=== PATIENT | male | born 1960 | race Caucasian/White ===

== ENCOUNTER 2019-12-14 01:29 | Outpatient (CLI) | payer OTHER, SELFPAY ==
[2019-12-14 19:02] LABS: SARS-CoV-2 RNA PCR Negative
== END 2019-12-14 01:30 | disposition home or self-care (01) ==
LOC: ANHCOVIDDT 01:30
PROVIDERS: PCP Internal Medicine; Visit Provider Internal Medicine Gastroenterology
DX: Z01.812 Encounter for preprocedural laboratory examination (principal); Z20.828 Contact with and (suspected) exposure to other viral communicable diseases
CPT/HCPCS: 87635; C9803; U0003

== ENCOUNTER 2019-12-16 00:59 | Day surgery (SDC) | payer OTHER, SELFPAY ==
[2019-12-09 14:40] VITALS: BMI 28.3
[2019-12-16 07:06] VITALS: BP 176/92; PULSE 60; RESP 16; TEMP 36.3; O2SAT 98; BMI 27.3
--- NOTE | 2019-12-16 07:09 | P.HP_ITS ---
History of Present Illness History of Present Illness Consent: Risks, benefits, and alternatives have been discussed and questions answered. Patient agrees to proceed with procedure. Chief complaint: neoplasm screening Narrative: Mauro Mercado is a 59 year old W male referred for screening colonoscopy. Patient's last colonoscopy was over 10 years ago. Patient is asymptomatic and there is no known family history of colon polyps or colon cancer. [facility] Social History Social History Smoking packs per day: 0.5 Smoking cigarettes per day: 10.0 Years smoked: 20 Smoking pack-years: 10.00 Smoking status: Former smoker Tobacco type: cigarettes Alcohol intake: never Substance use: never Substance use type: does not use Living arrangements: alone Gender identity (if verbalized by the patient): Male Spiritual care concerns: No Meds Home Medications and Allergies Home Medications Medication Instructions Recorded Confirmed Type lisinopril-hydrochlorothiazide 1 tablet PO DAILY 12/09/19 12/16/19 History Allergies Allergy/AdvReac Type Severity Reaction Status Date / Time No Known Allergies Allergy Verified 12/16/19 07:05 Vital Signs Vital Signs - 24 hr 12/16/19 07:06 Temperature 36.3 C L Pulse Rate 60 Respiratory Rate 16 Blood Pressure 176/92 H Pulse Oximetry 98 Exam Const: Orientation/consciousness: patient oriented x3 Resp: Auscultation: clear to auscultation bilaterally Cardio: Rate: regular rate Rhythm: regular rhythm Heart sounds: no murmurs GI: GI Palp: Yes Soft to palpation, No Tenderness to palpation present (GI), Yes No hepatosplenomegaly present and No Palpable mass present Auscultation: normal bowel sounds Neuro: General: patient oriented x3 and no focal motor deficits Extrem: General: no pedal edema Assessment and Plan Additional Plan Screening colonoscopy in average risk patient
[2019-12-16] MEDS: LACTATED RINGERS 1,000 ML 150 ML IV CONT (07:17)
--- NOTE | 2019-12-16 07:41 | WPDANESEPPF ---
Anes - Initial Pre Proc Eval Procedure: Operation Date: 12/16/19 08:30 Proposed Procedures p Screening Colonoscopy - Addison Carrington MD Date/Time: 12/16/19 07:41 Surgeon: Addison Carrington MD Pre Op Diagnosis: neoplasm screening Patient Data Age: 59 Gender: M Height: 5 ft 8 in Weight: 81.6 kg Last Vital Signs Temp 97.4 F L 12/16/19 07:06 Pulse 60 12/16/19 07:06 Resp 16 12/16/19 07:06 BP 176/92 H 12/16/19 07:06 Pulse Ox 98 12/16/19 07:06 Allergies Allergy/AdvReac Type Severity Reaction Status Date / Time No Known Allergies Allergy Verified 12/16/19 07:05 Home Medications Medication Instructions Recorded Confirmed Type lisinopril-hydrochlorothiazide 1 tablet PO DAILY 12/09/19 12/16/19 History Patient hx anesthesia problems: none Family hx anesthesia problems: none PMFSH Past Medical History Medical History (Updated 12/16/19 @ 07:40 by Carlos Kamara MD) Hypertension Prostate CA Surgical History Surgical History (Updated 12/16/19 @ 07:40 by Carlos Kamara MD) H/O prostatectomy Social History Social History Smoking packs per day: 0.5 Smoking cigarettes per day: 10.0 Years smoked: 20 Smoking pack-years: 10.00 Smoking status: Former smoker Tobacco type: cigarettes Alcohol intake: never Substance use: never Substance use type: does not use Living arrangements: alone Gender identity (if verbalized by the patient): Male Spiritual care concerns: No Anes - Eval Final PreProcedure Day of Procedure 12/16/19 07:41 Patient weight: obese Heart: regular rate and rhythm Lungs: clear to auscultation Airway: Mallampati scale class II Neurological: alert and oriented Last oral intake: >/= 8 hours ASA classification: III Emergent: no Anesthetic plan: proceed Anesthesia type and monitoring: general GIVS and standard monitoring Informed Consent: The patient's anesthetic plan and its attendant risks and benefits were discussed with the patient/family/POA. Questions were solicited and answers provided to the satisfaction of the patient/family/POA.
[2019-12-16] MEDS: SIMETHICONE ORAL SUSPENSION 20 MG/0.3 ML 30 ML BOTTLE 0.6 ML IRRIGATION (08:05)
[2019-12-16 08:11] VITALS: BP 115/83; PULSE 73; RESP 15; O2SAT 97
[2019-12-16 08:21] VITALS: BP 127/88; PULSE 65; RESP 20; O2SAT 97
[2019-12-16 08:31] VITALS: BP 142/94; PULSE 62; RESP 16; O2SAT 98
== END 2019-12-16 08:50 | disposition home or self-care (01) ==
PROVIDERS: PCP Internal Medicine; Visit Provider Internal Medicine Gastroenterology
PROC: 0DJD8ZZ Inspection of Lower Intestinal Tract, Via Natural or Artificial Opening Endoscopic (ICD-10-PCS; CPT 45378; principal; 2019-12-16 08:30)
DX: Z12.11 Encounter for screening for malignant neoplasm of colon (principal); K64.4 Residual hemorrhoidal skin tags; Z87.891 Personal history of nicotine dependence
CPT/HCPCS: 45378; J2704; J7120

== ENCOUNTER 2020-07-21 14:04 | Emergency (ER) | payer OTHER, SELFPAY ==
[2020-07-21 14:12] VITALS: BP 163/100; PULSE 79; RESP 18; TEMP 36.7; O2SAT 95
[2020-07-21] MEDS: IBUPROFEN IV 800 MG/200 ML 800 MG/200 ML BAG 400 MG IVPB (14:47)
[2020-07-21] MEDS: SODIUM CHLORIDE 0.9% IV 1,000 ML 999 ML IV CONT (14:48)
--- NOTE | 2020-07-21 14:56 | ED.GENADULT ---
HPI - General Adult General Chief complaint: Wound/Laceration Stated complaint: abd wound Time Seen by Provider: 07/21/20 14:12 Source: patient, family and RN notes reviewed Mode of arrival: ambulatory Limitations: no limitations History of Present Illness HPI narrative: Patient is a 60-year-old male who presents to emergency department for evaluation of abdominal abscess that has been present for the last several days was seen by primary care today diagnosed with abscess and referred to emergency department for further evaluation patient notes red tender swollen area with pain that worsens with palpation patient notes he has a history of folliculitis in this area patient has not taken anything for symptoms presents in no distress Related Data Home Medications Medication Instructions Recorded Confirmed lisinopril-hydrochlorothiazide 1 tablet PO DAILY 12/09/19 12/16/19 Allergies Allergy/AdvReac Type Severity Reaction Status Date / Time No Known Allergies Allergy Verified 12/16/19 07:05 Review of Systems Review of Systems: All systems reviewed & are unremarkable except as noted in HPI and below PMFSH Past Medical History Medical History Hypertension Prostate CA Surgical History Surgical History H/O prostatectomy Social History Social History Smoking packs per day: 0.5 Smoking cigarettes per day: 10.0 Years smoked: 20 Smoking pack-years: 10.00 Smoking status: Former smoker Tobacco type: cigarettes Alcohol intake: never Substance use: never Substance use type: does not use Gender identity (if verbalized by the patient): Male Spiritual care concerns: No Exam Narrative: Exam Narrative: GENERAL: Well-appearing, well-nourished, and in no acute distress. HEAD: Normocephalic, atraumatic. EYES: PERRLA and EOMI. ENT: Nares clear, no rhinorrhea or epistaxis. Mucous membranes moist. CHEST: Clear to auscultation. No respiratory distress. No wheezes rales or rhonchi HEART: Regular rate and rhythm. No murmur heard. Normal peripheral pulses. ABDOMEN: Soft, nontender, nondistended EXTREMITIES: Normal range of motion. No edema. SKIN: Warm, dry, no rash. Patient with red tender swollen fluctuant erythematous lesion in the right midline abdomen NEURO: No focal deficits. Alert and oriented x3. Cranial nerves II through XII grossly intact PSYCH: Normal mood and affect. Course Course Emergency Course: Patient with abscess that was I&D given fluids and antibiotics in the emergency department will be discharged home for further evaluation on outpatient basis patient provided with reasons to return Vital Signs Vital signs: Vital Signs Temperature 98.0 F 07/21/20 14:12 Pulse Rate 79 07/21/20 14:12 Respiratory Rate 18 07/21/20 14:12 Blood Pressure 163/100 H 07/21/20 14:12 Pulse Oximetry 95 07/21/20 14:12 Temperature 98.0 F 07/21/20 14:12 Pulse Rate 79 07/21/20 14:12 Respiratory Rate 18 07/21/20 14:12 Blood Pressure 163/100 H 07/21/20 14:12 Pulse Oximetry 95 07/21/20 14:12 Procedures Abscess I/D abdomen: Date of Incision: 07/21/20 Time of Incision: 17:19 Side (if applicable): right Local Anesthetic: lidocaine 1% Technique: incised with #11 blade Amount of fluid expressed (mL): 5 Irrigation: No Packing used?: iodoform I&D Results: Pus Complications: pain and bleeding Abcess I&D Additional Comments: Abscess was probed with hemostats to break up loculations iodoform packing was placed Medical Decision Making MDM Narrative Medical decision making narrative: Patient in the room afebrile nontoxic-appearing no distress made aware of case findings treatment plan and diagnosis agreeing to follow-up as instructed or to return if symptom
[2020-07-21 15:06] LABS: Basophils Absolute Auto 0.1 K/mm3 (0.0-0.1); Basophils Percent Auto 0.5 % (0.2-1.2); Eosinophils Percent Auto 0.3 % (0-4.4); Hematocrit 48.1 % (42.0-52.0); Hemoglobin 16.7 g/dL (14.0-18.0); Immature Granulocyte Absolute 0.03 K/mm3 (0.00-0.031); Immature Granulocyte Percent A 0.3 % (0-0.5); Lymphocytes Percent Auto 11.9 % (18.3-44.2); Mean Corpuscular HGB Conc 34.7 g/dl (32-36); Mean Corpuscular Hemoglobin 31.5 pg (26-34); Mean Corpuscular Volume 90.8 fl (80-100); Mean Platelet Volume 9.2 fl (7.4-10.4); Monocytes Absolute Auto 0.9 K/mm3 (0.1-0.6); Neutrophils Absolute Auto 9.3 K/mm3 (1.3-6.7); Platelet Count Result 319 k/mm3 (150-375); Red Cell Distribution Width 11.9 % (11.5-14.5); White Blood Count 11.8 K/mm3 (4.5-10.0)
[2020-07-21 15:18] LABS: Alanine Aminotransferase 25 U/L (4-50); Albumin Level 4.7 g/dL (3.5-5.1); Alkaline Phosphatase 76 U/L (38-126); Anion Gap 8 mmol/L (8-16); Aspartate Amino Transferase 31 U/L (17-59); Bilirubin,Total 0.8 mg/dL (0.2-1.3); Blood Urea Nitrogen 11 mg/dL (9-20); CRP 1.3 mg/dL (<1.0); Calcium 9.8 mg/dL (8.4-10.2); Carbon Dioxide 30 mmol/L (22-30); Chloride 102 mmol/L (98-107); Estimated CRCL calculation 72 ml/min; Estimated Glomerular Filt Rate > 60; Glucose 122 mg/dL (75-110); Potassium 3.3 mmol/L (3.4-5.0); Sodium 140 mmol/L (137-145)
[2020-07-21 15:20] VITALS: BP 156/86; PULSE 71; RESP 14; O2SAT 96
[2020-07-21 16:20] VITALS: BP 153/91; PULSE 68; RESP 16; O2SAT 99
[2020-07-21 17:20] VITALS: BP 135/82; PULSE 67; RESP 14; O2SAT 94
[2020-07-21 18:00] VITALS: BP 128/83; PULSE 67; RESP 14; O2SAT 94
== END 2020-07-21 18:18 | disposition home or self-care (01) ==
PROVIDERS: Emergency Medicine Emergency Medical Services; Emergency Provider Emergency Medicine; PCP Internal Medicine
DX: L02.211 Cutaneous abscess of abdominal wall (principal); I10 Essential (primary) hypertension; Z85.46 Personal history of malignant neoplasm of prostate; Z90.79 Acquired absence of other genital organ(s); Z87.891 Personal history of nicotine dependence
CPT/HCPCS: 10061; 36415; 80053; 85025; 86140; 87070; 87075; 87147; 87186; 87205; 96365; 96367; 99284; J1741; J7030

== ENCOUNTER 2023-06-24 11:07 | Outpatient (CLI) | payer MEDICARE, SELFPAY ==
--- NOTE | ~2023-06-24 | PE_ITS ---
EXAMINATION: PET_PETPSMAST_PT DATE: 06/24/2023 14:27 INDICATION: Malignant neoplasm of prostate. TECHNIQUE: 5.68 mCi of piflufolastat F-18 was administered intravenously. Low dose computed tomograph y (CT) images were acquired from the base of the brain to the proximal thighs for attenuation correct ion and anatomic localization. Automated exposure control was employed. Dose-length product (DLP) was 1065 mGy-cm. Positron emission tomography (PET) images were acquired in the same distribution. COMPARISON: None FINDINGS: Head/neck: There are no pathologically enlarged lymph nodes. There is severe cervical spondylosis. Chest: The lungs demonstrate mild atelectasis. No pleural effusion. Cardiomegaly is noted. There are coronary artery calcifications. No pericardial effusion. There is severe thoracic spondylosis. Abdomen/pelvis/proximal thighs: There is diffuse hepatic steatosis. There are cysts in the liver evelyne uring up to 3.3 cm. The gallbladder, spleen, pancreas, adrenal glands, and right kidney are normal. T here are cysts in left kidney measuring up to 11 mm. There is a supraumbilical ventral hernia contain ing fat. There are changes of prostatectomy. There are no dilated loops of bowel. The appendix is nor mal. There are no pathologically enlarged lymph nodes. There is no free intraperitoneal fluid. There is mild lumbar spondylosis. IMPRESSION: 1. No evidence of malignancy. Reviewed, dictated and finalized at location A.
== END 2023-06-24 11:08 | disposition home or self-care (01) ==
LOC: ANHIMG 11:11
PROVIDERS: PCP Internal Medicine; Visit Provider Urology
DX: C61 Malignant neoplasm of prostate (principal)
CPT/HCPCS: 78815; A9596

== ENCOUNTER 2023-07-24 08:19 | Outpatient (CLI) | payer MEDICARE, SELFPAY ==
--- NOTE | ~2023-07-24 | MR_ITS ---
EXAMINATION: MR pelvis wo/w con DATE: 07/24/2023 09:54 INDICATION: Malignant neoplasm of prostate. TECHNIQUE: Magnetic resonance imaging (MRI) of the pelvis was performed without and with 16 mL MultiH ance intravenous contrast. COMPARISON: PET/CT 06/24/2023 FINDINGS: The prostate is absent. There are no pathologically enlarged lymph nodes. There is no free intraperit scanlon fluid. There are small bilateral hydroceles. IMPRESSION: 1. Prostatectomy. Reviewed, dictated and finalized at location A. IMPRESSION: 1. Prostatectomy.
== END 2023-07-24 08:20 | disposition home or self-care (01) ==
LOC: ANHIMG 08:22
PROVIDERS: PCP Internal Medicine; Visit Provider Radiology Radiation Oncology
DX: C61 Malignant neoplasm of prostate (principal); Z90.79 Acquired absence of other genital organ(s)
CPT/HCPCS: 72197; A9577